=== PATIENT | male | born 1960 | race Caucasian/White ===

== ENCOUNTER 2019-01-09 04:45 | Inpatient (IN) | payer MEDICAID ==
[~2019-01-09] VITALS: Ht 180.3 cm; Wt 54.0 kg
--- NOTE | ~2019-01-09 | CON ---
[address] [address] CONSULTATION Name: SALGADOKEYON Room: [address] IN M.R.#: [id number] Admission: 01/09/19 Attend Phys: Zeynep Carr MD Discharge: Date of : 62 Report #: [id number] THIS REPORT FOR: //name// CC: Aiden Godfrey DATE OF SERVICE: 01/09/2019 REFERRING PHYSICIAN: Dr. Zeynep Carr. REASON FOR CONSULTATION: Abdominal pain. IMPRESSION: 1. Abdominal pain associated with dilated loops of small bowel suggesting partial small-bowel obstruction -- cannot rule out internal hernia versus adhesions versus other causes. 2. Decompensated liver disease secondary to chronic hepatitis B infection with associated ascites for which the patient is on diuretic regimen for the same. 3. Protein-calorie malnutrition secondary to #2. RECOMMENDATIONS: Since the patient's CT scan suggests there may be some "swirling of the mesentery" which could suggest that he has a twisting of his small bowel, which is putting him at risk for ischemic bowel, we will proceed with an emergent CT scan of the abdomen and pelvis with oral and IV contrast and proceed from the same. He will likely need to have an NG tube to decompress his small bowel, but he may need to be transferred to higher level of care. 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 Millard ([place]?). The patient should remain n.p.o. until after CT scan and we will await the results of the same and make further recommendations thereafter. I have discussed the plans with the patient as well. He is agreeable to the same. History: The patient is a 58-year-old white male with decompensated liver disease secondary to hepatitis B and/or other causes, who presented to the emergency room with complaints of rather severe chest discomfort, chest pain and upper abdominal pain with associated abdominal distention. He is very tender upon physical examination of his upper abdomen and CT scan of the abdomen and pelvis suggest that he may have partial small-bowel obstruction involving the proximal small bowel. There is also some question about possibly having an internal hernia that may be causing some of these issues. The patient has had multiple abdominal surgeries, he does not carry a list, but this includes appendectomy, inguinal hernia surgeries and other such issues. He is normally followed at for all of his care and his primary care doctor is in [place], [place]. However, because he was having abnormal chest discomfort and chest [facility] [address] [place] [address] CONSULTATION Name: KEYON SALGADO Room: [address] M.R.#: [id number] Admission: 01/09/19 Attend Phys: Zeynep Carr MD Discharge: Date of : 62 Report #: [id number] pain, he was brought to [facility] for ER evaluation to ensure it is not related to his cardiopulmonary system. It was not felt that it is related to same. He is admitted to the hospital here for the first time for further evaluation and treatment. ALLERGIES: PENICILLIN. MEDICATIONS: At home include Xifaxan, Vemlidy, Lasix 40 mg daily, Aldactone 100 mg daily, Protonix 40 mg daily, Proscar 5 mg daily, Ultram 50 mg up to twice daily, metoclopramide 10 mg twice daily, Cipro 500 mg b.i.d. and lactulose 15 mL daily. PAST MEDICAL AND SURGICAL HISTORY: Remarkable for decompensated liver disease as mentioned above secondary to hepatitis B and/or other causes. The patient did not want to go into details of the same, but he is normally followed at for all of his care. He has had multiple abdominal surgeries, has reflux, ascites and BPH as well. SOCIAL HISTORY: The patient smokes up to a pack per day, does not drink alcohol. FAMILY HISTORY: Not taken. PHYSICAL EXAMINATION: GENERAL: Revealed very ill-appearing 58-year-old gentleman who appears much older than stated age. CARDIOPULMONARY EXAMINATION: Revealed tachycardic rate and rhythm. LUNGS: Clear. ABDOMEN: Soft, is tender just to gentle percussion and palpation. LABORATORY DATA: From admission revealed white count 11.5, hemoglobin 11.9, platelet count 225,000. His MCV is 96.2 and RDW 14.4. His sodium 130, potassium 4.3, chloride 96, bicarbonate is 28, BUN 23, creatinine 1.5. GFR 48. Total bilirubin 1.3, alkaline phosphatase 120, AST is 26, ALT 20. His albumin is only 2.4. His protime is 11.5 with INR of 1.1. CT scan of the abdomen and pelvis revealed a shrunken liver with moderate amount of ascites and proximal small bowel dilation. Stomach is decompressed. His colon revealed marked stool throughout the colon without evidence to suggest that this was the cause from the same and his distal small bowel is decompressed. There is also some swirling of the mesentery suggesting that he may have possible. DISCUSSION: At the present time, the patient [place] [address] CONSULTATION Name: KEYON SALGADO Room: [address] IN [facility]#: [id number] Admission: 01/09/19 Attend Phys: Zeynep Carr MD Discharge: Date of : 62 Report #: [id number] scan with oral contrast, oral and IV contrast and depending on the results of the same, the patient may likely need to be transferred to for further evaluation and treatment. He is beyond the scope of our care at this point in time with an advanced MELD score and ascites and chronic liver disease. He needs to be at a transplant center or definitely at a higher level of care, this would include , [facility] or at . We will wait for results of CT scan and make further recommendations thereafter. By: [id number] Garza DO /tank
[2019-01-09 04:47] VITALS: BP 100/70
[2019-01-09] MEDS ORDERED: XIFAXAN550 M1 PO (05:04)
[2019-01-09] MEDS ORDERED: VEMLIDY25 MG PO (05:05)
[2019-01-09] MEDS ORDERED: LASIX 80 MG TAB80 MG PO (05:06)
[2019-01-09] MEDS ORDERED: PROTONIX40 M1 PO (05:07)
[2019-01-09] MEDS ORDERED: ALDACTONE100 MG PO (05:07)
[2019-01-09] MEDS ORDERED: PROSCAR 5MG TABL5 MG PO (05:08)
[2019-01-09] MEDS ORDERED: TRAMADOL 50 MG50 MG PO (05:09)
[2019-01-09] MEDS ORDERED: REGLAN 10 MG TA10 MG PO (05:09)
[2019-01-09] MEDS ORDERED: CIPRO500 MG PO (05:10)
[2019-01-09] MEDS ORDERED: CONSTULOSE10 GM/152 PO (05:13)
[2019-01-09 05:21] LABS: HEMATOCRIT 34.4 % (42.0-52.0); HEMOGLOBIN 11.9 gm/dL (14.0-18.0); MCH 33.3 pg (26.0-34.0); MCHC 34.6 g/dL (28.0-37.0); MCV 96.2 fL (80.0-100.0); MPV 6.6 fl. (7.2-11.1); NUCLEATED RBCS 0 /100WBC; PLATELET COUNT* 225 thou/uL (150-400); RBC 3.57 mil/uL (4.50-6.00); RDW-CV 14.4 % (10.5-14.5); WBC 11.5 thou/uL (4.0-11.0)
[2019-01-09 05:40] LABS: INR 1.1; PROTIME 11.5 Seconds (9.20-11.50)
[2019-01-09 05:48] LABS: ANION GAP 6 mmol/L (7-16); BUN 23 mg/dL (7-18); CALCIUM 8.8 mg/dL (8.5-10.1); CHLORIDE 96 mmol/L (98-107); CO2 28 mmol/L (21-32); CREATININE 1.5 mg/dL (0.6-1.3); GLUCOSE 127 mg/dL (70-99); POTASSIUM 4.3 mmol/L (3.5-5.1); SODIUM 130 mmol/L (136-145); TROPONIN-I LEVEL <0.06 ng/mL (<0.06)
[2019-01-09 05:50] LABS: ALBUMIN 2.4 g/dL (3.4-5.0); ALKALINE PHOSPHATASE 120 U/L (46-116); LIPASE 88 U/L (73-393); NT-PRO BRAIN NAT PEPTIDE 56 pg/mL (<300); SGOT 26 U/L (15-37); SGPT 20 U/L (30-65); TOTAL BILIRUBIN 1.3 mg/dL (<0.1-1.0); TOTAL PROTEIN 7.7 g/dL (6.4-8.2)
[2019-01-09 06:42] LABS: ABSOLUTE MONOCYTES 0.5 thou/uL (0.0-1.2); PLATELET ESTIMATE ADEQUATE
[2019-01-09 06:43] LABS: ANISOCYTOSIS 1+; POIKILOCYTOSIS 1+
[2019-01-09 13:14] VITALS: BP 99/72
[2019-01-09 14:11] VITALS: BP 106/70
[2019-01-09 14:20] VITALS: BP 107/73
[2019-01-09] MEDS ORDERED: BENTYL 10 MG CA10 M1 PO (14:25)
[2019-01-09 17:06] LABS: HEMATOCRIT 33.7 % (42.0-52.0); HEMOGLOBIN 11.3 gm/dL (14.0-18.0); MCH 32.9 pg (26.0-34.0); MCHC 33.5 g/dL (28.0-37.0); MCV 98.2 fL (80.0-100.0); MPV 6.8 fl. (7.2-11.1); NUCLEATED RBCS 0 /100WBC; PLATELET COUNT* 198 thou/uL (150-400); RBC 3.43 mil/uL (4.50-6.00); RDW-CV 14.3 % (10.5-14.5); WBC 14.7 thou/uL (4.0-11.0)
[2019-01-09 17:23] LABS: ALBUMIN 2.2 g/dL (3.4-5.0); CALCIUM 8.6 mg/dL (8.5-10.1); CREATININE 1.3 mg/dL (0.6-1.3); POTASSIUM 4.5 mmol/L (3.5-5.1); TOTAL PROTEIN 7.8 g/dL (6.4-8.2)
[2019-01-09 18:45] LABS: ABSOLUTE EOSINOPHILS 0.3 thou/uL (0.0-0.7); ABSOLUTE LYMPHOCYTES 1.6 thou/uL (0.8-5.3); ABSOLUTE NEUTROPHILS 11.8 thou/uL (1.6-8.1)
[2019-01-09 18:47] LABS: PLATELET ESTIMATE ADEQUATE
[2019-01-09 21:10] VITALS: BP 106/68
[2019-01-10 03:00] VITALS: BP 109/71
[2019-01-10 05:33] LABS: HEMATOCRIT 28.2 % (42.0-52.0); HEMOGLOBIN 9.9 gm/dL (14.0-18.0); MCH 33.4 pg (26.0-34.0); MCV 95.5 fL (80.0-100.0); RBC 2.95 mil/uL (4.50-6.00); RDW-CV 14.1 % (10.5-14.5); WBC 11.1 thou/uL (4.0-11.0)
[2019-01-10 05:44] LABS: ALBUMIN 1.8 g/dL (3.4-5.0); CALCIUM 8.3 mg/dL (8.5-10.1); MAGNESIUM 1.9 mg/dL (1.8-2.4); POTASSIUM 4.4 mmol/L (3.5-5.1); TOTAL BILIRUBIN 1.9 mg/dL (<0.1-1.0); TOTAL PROTEIN 6.8 g/dL (6.4-8.2)
[2019-01-10 08:00] VITALS: BP 94/62
[2019-01-10 11:57] VITALS: BP 100/63
[2019-01-10 15:46] VITALS: BP 99/68
--- NOTE | 2019-01-10 16:33 | EKG ---
[place] [address] ELECTROCARDIOGRAM REPORT Name: KEYON SALGADO Room: [address] ADM IN .R.#: [id number] Admission: 01/09/19 Attend Phys: Zeynep Carr MD Discharge: Date of : 62 Report #: [id number] THIS REPORT FOR: //name// [facility] ED Test Date: 2019-01-09 Test Time: 04:51:20 Pat Name: KEYON SALGADO Department: Room: [facility] Gender: M Wine Consultant: KERRI : 1960 Requested By: Rea Juarez Order Number: [id number] MD: Ariel Moreira Measurements Intervals [place] Rate: 116 P: 85 [place]: 138 QRS: 89 QRSD: 96 T: 62 QT: 309 QTc: 430 Interpretive Statements Sinus tachycardia No previous ECG available for comparison Electronically Signed On 01-10-2019 16:33:17 MEDICAL STAFF ASSISTANT by Ariel Moreira [email or web address] <ELECTRONICALLY SIGNED> By: Ariel Moreira MD, [facility] 01/10/19 1633 [id number] Ariel Moreira MD, FACC /EPI
[2019-01-10 20:00] VITALS: BP 88/59
[2019-01-11] VITALS: BP 115/59
[2019-01-11 04:00] VITALS: BP 95/58
[2019-01-11 05:19] LABS: ABSOLUTE EOSINOPHILS 0.2 thou/uL (0.0-0.7); ABSOLUTE LYMPHOCYTES 1.3 thou/uL (0.8-5.3); ABSOLUTE MONOCYTES 0.8 thou/uL (0.0-1.2); ABSOLUTE NEUTROPHILS 4.7 thou/uL (1.6-8.1); BASOPHILS 0.7 %; EOSINOPHILS 3.1 %; HEMATOCRIT 26.3 % (42.0-52.0); HEMOGLOBIN 9.3 gm/dL (14.0-18.0); LYMPHOCYTES 18.8 %; MCH 33.6 pg (26.0-34.0); MCHC 35.4 g/dL (28.0-37.0); MONOCYTES 11.1 %; NUCLEATED RBCS 0 /100WBC; PLATELET COUNT* 183 thou/uL (150-400); POLYS 66.3 %; RBC 2.76 mil/uL (4.50-6.00); RDW-CV 14.1 % (10.5-14.5); WBC 7.1 thou/uL (4.0-11.0)
[2019-01-11 06:05] LABS: ALBUMIN 1.7 g/dL (3.4-5.0); CALCIUM 8.5 mg/dL (8.5-10.1); CREATININE 0.9 mg/dL (0.6-1.3); POTASSIUM 4.5 mmol/L (3.5-5.1); TOTAL BILIRUBIN 1.2 mg/dL (<0.1-1.0); TOTAL PROTEIN 6.3 g/dL (6.4-8.2)
[2019-01-11 08:00] VITALS: BP 88/61
[2019-01-11 15:08] LABS: URINE BILIRUBIN NEGATIVE (Negative); URINE BLOOD NEGATIVE (Negative); URINE CLARITY CLEAR; URINE COLOR DARK YELLOW; URINE GLUCOSE-RANDOM NEGATIVE (Negative); URINE KETONES NEGATIVE (Negative); URINE LEUKOCYTES-REFLEX 1+ (Negative); URINE NITRITE-REFLEX NEGATIVE (Negative); URINE PROTEIN NEGATIVE (Negative)
[2019-01-11 15:39] LABS: SQUAMOUS 4-10 Moderate /LPF (0-3)
[2019-01-11 15:40] LABS: URINE RBC 0-2 Rare /HPF (0-2); URINE WBC-REFLEX 6-15 Few /HPF (0-5)
[2019-01-11 15:42] LABS: BF RBC <1000 /mm3; TOTAL CELL COUNT 131 /mm3
[2019-01-11 15:42] LABS: CRYSTALS None Seen /LPF (None Seen); HYALINE CASTS 0-3 Few /LPF (None Seen); MUCUS 4-6 Moderate strn/LPF (None Seen)
[2019-01-11 16:05] LABS: COLOR AMBER; TOTAL VOLUME 60 ml
[2019-01-11 16:06] LABS: CLARITY HAZY; SOURCE ASCITES
[2019-01-11 16:07] LABS: BF LYMPHOCYTES 49 %; BF POLYS 2 %; BF TISSUE 49 /100 WBC
[2019-01-11 16:20] VITALS: BP 96/67
[2019-01-11 16:43] VITALS: BP 88/61
[2019-01-11 20:30] VITALS: BP 87/59
[2019-01-12 04:00] VITALS: BP 82/53
[2019-01-12 08:20] VITALS: BP 94/52
[2019-01-12 09:14] VITALS: BP 94/52
[2019-01-12 10:10] LABS: BODY FLUID PROTEIN 2.5 g/dL (())
[2019-01-13 18:17] LABS: SOURCE ABDOMINAL
== END 2019-01-12 14:20 | disposition home or self-care (01) | DRG 442 ==
LOC: M.ERS 04:45 → M.2W 08:08 → M.ORTHSURG 08:08 → M.TBA-ER 08:08 → M.2W 14:34 → M.ORTHSURG 01-11 16:09
PROVIDERS: Emergency Medicine; Internal Medicine Gastroenterology; Surgery; ADMIT Internal Medicine
PROC: 0D9670Z Drainage of Stomach with Drainage Device, Via Natural or Artificial Opening (ICD-10-PCS; principal; 2019-01-09)
PROC: 0W9G3ZZ Drainage of Peritoneal Cavity, Percutaneous Approach (ICD-10-PCS; 2019-01-11)
DX: K72.90 Hepatic failure, unspecified without coma (principal); K56.600 Partial intestinal obstruction, unspecified as to cause; R18.8 Other ascites; B18.1 Chronic viral hepatitis B without delta-agent; E46 Unspecified protein-calorie malnutrition; Z68.1 Body mass index [BMI] 19.9 or less, adult; K74.60 Unspecified cirrhosis of liver; F03.90 Unspecified dementia, unspecified severity, without behavioral disturbance, psychotic disturbance, mood disturbance, and anxiety; K21.9 Gastro-esophageal reflux disease without esophagitis; F17.210 Nicotine dependence, cigarettes, uncomplicated; Z90.49 Acquired absence of other specified parts of digestive tract; Z79.899 Other long term (current) drug therapy; Z88.0 Allergy status to penicillin

== ENCOUNTER 2019-04-13 19:11 | Inpatient (IN) | payer OTHER, MEDICAID ==
[~2019-04-13] VITALS: Ht 180.3 cm; Wt 59.0 kg
--- NOTE | ~2019-04-13 | CON ---
[address] [address] CONSULTATION Name: KEYON SALGADO Room: [address] IN ..#: [id number] Admission: 04/13/19 Attend Phys: Keyon Marquis MD Discharge: 04/16/19 Date of : 62 Report #: [id number] THIS REPORT FOR: //name// CC: Keyon Godfrey DATE OF SERVICE: 04/16/2019 HISTORY OF PRESENT ILLNESS: This is a pleasant 58-year-old gentleman with past medical history significant for cirrhosis secondary to hepatitis B and alcohol use, decompensated by the presence of varices, encephalopathy and ascites who is presenting for worsening confusion over the last 3 days. The patient reports he felt a sense of cloudiness in his head, inability to think clearly and inability to fall asleep for the last 3 days. The patient reports his symptoms have resolved since yesterday night and today morning he has been feeling well. The patient denies any significant abdominal pain, nausea, vomiting, diarrhea, hematemesis or hematochezia. He denies any burning micturition. The patient receives care in [place], [place] for his hepatitis B and has seen a multiple wire sawyer there. He does wish to follow up in [place], [place]. PAST MEDICAL HISTORY: The patient has as mentioned above history of cirrhosis, hepatitis B, alcohol abuse, ascites, varices and encephalopathy. PAST SURGICAL HISTORY: The patient reports he has had several abdominal surgeries, but is unable to give details. SOCIAL HISTORY: The patient currently smokes about a pack a day, but reports he quit alcohol about 2 years back and denies any recent recreational drug use. FAMILY HISTORY: There is no family history of colorectal cancer or liver disease. REVIEW OF SYSTEMS: Negative except for those mentioned in the HPI. PHYSICAL EXAMINATION: VITAL SIGNS: Temperature 36.8, pulse rate 90, blood pressure 110/71, respiratory rate 17. GENERAL: The patient is alert, awake, oriented x 3, appears chronically ill and cachectic. HEENT: Mucous membranes are moist. There is no congestion. Upper extremities are covered with spider angiomata. Sclerae are mildly icteric. LUNGS: Clear to auscultation bilaterally. CARDIOVASCULAR: Normal rate and rhythm regular, S1, S2 present. ABDOMEN: Soft, distended, positive for fluid thrill. EXTREMITIES: Warm. There is 2+ [place] [address] CONSULTATION Name: KEYON SALGADO Room: [address]#: [id number] Admission: 04/13/19 Attend Phys: Keyon Marquis MD Discharge: 04/16/19 Date of : 62 Report #: [id number] LABORATORY DATA: Hemoglobin 11.8, hematocrit 32.4, platelet count 121, WBC count 5.8. Sodium 125, potassium 4.1, chloride 95, bicarbonate 22, BUN 18, creatinine 1.2. IMAGING: CT abdomen and pelvis performed on 04/13/2019 demonstrates mildly prominent ascites throughout the abdomen and pelvis. Nodular contour of the liver consistent with cirrhosis, varices throughout the gastric and splenic region suggesting portal hypertension, small hiatal hernia, cystic changes in kidneys. ASSESSMENT AND PLAN: Pleasant 58-year-old gentleman with decompensated cirrhosis who has been consulted for evaluation of hyponatremia and encephalopathy. 1. Encephalopathy. Continue with lactulose and rifaximin. The encephalopathy appears to have resolved at this time. 2. Hyponatremia. The patient's sodium is 125. This generally indicates poor overall liver disease, increasing the sodium beyond 125 does not have any mortality benefit on the patient. I would recommend starting midodrine 5 mg t.i.d. Also, his blood pressure remains low. This may help in aiding better renal perfusion and improving his sodium levels. 3. For patients with decompensated cirrhosis, albumin is recommended outpatient biweekly and it has been shown to improve mortality. However, the patient is allergic to albumin and cannot receive it. 4. Ascites. Continue his diuretics as previously prescribed, varices and HCC screening. The patient would like to follow up with his primary multiple wire sawyer as outpatient for this. The patient was seen and examined on 04/16/2019. The note reflects this date of service. Thank you for this consultation. Do not hesitate to call us with any questions. By: [id number] Garibay MD /tank
[~2019-04-13 19:11] MED LIST: ALDACTONE100 MG PO; BENTYL 10 MG CA10 M1 PO; CIPRO500 MG PO; CONSTULOSE10 GM/152 PO; LASIX 80 MG TAB80 MG PO; PROSCAR 5MG TABL5 MG PO; PROTONIX40 M1 PO; REGLAN 10 MG TA10 MG PO; TRAMADOL 50 MG50 MG PO; VEMLIDY25 MG PO; XIFAXAN550 M1 PO
[2019-04-13 19:35] VITALS: BP 115/78
[2019-04-13] MEDS ORDERED: ROBAXIN 750 MG750 M1 PO (19:42)
[2019-04-13 20:20] LABS: ABSOLUTE EOSINOPHILS 0.1 thou/uL (0.0-0.7); ABSOLUTE LYMPHOCYTES 0.6 thou/uL (0.8-5.3); ABSOLUTE MONOCYTES 0.4 thou/uL (0.0-1.2); ABSOLUTE NEUTROPHILS 3.4 thou/uL (1.6-8.1); BASOPHILS 0.5 %; EOSINOPHILS 1.8 %; HEMATOCRIT 38.1 % (42.0-52.0); HEMOGLOBIN 13.6 gm/dL (14.0-18.0); LYMPHOCYTES 13.9 %; MCH 34.5 pg (26.0-34.0); MCHC 35.6 g/dL (28.0-37.0); MONOCYTES 9.4 %; MPV 6.8 fl. (7.2-11.1); NUCLEATED RBCS 0 /100WBC; PLATELET COUNT* 178 thou/uL (150-400); POLYS 74.4 %; RBC 3.93 mil/uL (4.50-6.00); RDW-CV 16.2 % (10.5-14.5); WBC 4.5 thou/uL (4.0-11.0)
[2019-04-13 20:28] LABS: CALCIUM 9.2 mg/dL (8.5-10.1); CREATININE 1.3 mg/dL (0.6-1.3); POTASSIUM 4.4 mmol/L (3.5-5.1)
[2019-04-13 20:33] LABS: ALBUMIN 2.7 g/dL (3.4-5.0); TOTAL BILIRUBIN 1.9 mg/dL (<0.1-1.0); TOTAL PROTEIN 8.1 g/dL (6.4-8.2)
[2019-04-13 21:05] LABS: APTT 28.2 Seconds (25.0-31.3); PROTIME 10.7 Seconds (9.20-11.50)
[2019-04-13 21:30] LABS: AMMONIA 35 umol/L (11-32); TROPONIN-I LEVEL <0.06 ng/mL (<0.06)
[2019-04-13 22:50] VITALS: BP 113/74
[2019-04-13 23:05] VITALS: BP 116/74
[2019-04-14] VITALS (7 sets, daily range): BP systolic 91–131; BP diastolic 52–80
--- NOTE | 2019-04-14 11:27 | EKG ---
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: : 1960 Requested By: Marcos Gay Order Number: [id number] MD: Jose Elias Rees Measurements Intervals [place] Rate: 102 P: 68 DC: 139 QRS: 75 QRSD: 103 T: 36 QT: 335 QTc: 437 Interpretive Statements Sinus tachycardia Probable left atrial enlargement RSR' in V1 or V2, right VCD or RVH Compared to ECG 01/09/2019 04:51:20 RSR' in V1 or V2 now present Electronically Signed On 04-14-2019 11:27:44 CDT by Jose Elias Rees [email or web address] <ELECTRONICALLY SIGNED> By: Jose Elias Rees MD, FAC 04/14/19 1127 2238 Jose Elias Rees MD, [facility] /EPI
[2019-04-14 14:10] LABS: CALCIUM 8.5 mg/dL (8.5-10.1); POTASSIUM 4.5 mmol/L (3.5-5.1)
[2019-04-15] VITALS: BP 93/57
[2019-04-15 04:00] VITALS: BP 109/72
[2019-04-15 05:14] LABS: CALCIUM 8.3 mg/dL (8.5-10.1); CREATININE 1.1 mg/dL (0.6-1.3); POTASSIUM 4.4 mmol/L (3.5-5.1)
[2019-04-15 08:00] VITALS: BP 141/85
[2019-04-15 11:10] VITALS: BP 110/70
[2019-04-15 12:24] LABS: ABSOLUTE EOSINOPHILS 0.1 thou/uL (0.0-0.7); ABSOLUTE LYMPHOCYTES 0.7 thou/uL (0.8-5.3); ABSOLUTE MONOCYTES 0.4 thou/uL (0.0-1.2); ABSOLUTE NEUTROPHILS 4.8 thou/uL (1.6-8.1); BASOPHILS 0.6 %; EOSINOPHILS 2.4 %; HEMATOCRIT 35.9 % (42.0-52.0); HEMOGLOBIN 12.7 gm/dL (14.0-18.0); LYMPHOCYTES 11.7 %; MCH 35.1 pg (26.0-34.0); MCHC 35.5 g/dL (28.0-37.0); MCV 98.7 fL (80.0-100.0); MONOCYTES 6.3 %; MPV 6.8 fl. (7.2-11.1); NUCLEATED RBCS 0 /100WBC; PLATELET COUNT* 137 thou/uL (150-400); RBC 3.63 mil/uL (4.50-6.00); RDW-CV 15.9 % (10.5-14.5)
[2019-04-15 16:30] VITALS: BP 97/56
[2019-04-15 20:40] VITALS: BP 103/70
[2019-04-16] VITALS: BP 89/57
[2019-04-16 00:50] LABS: URINE BILIRUBIN NEGATIVE (Negative); URINE BLOOD NEGATIVE (Negative); URINE CLARITY CLEAR; URINE COLOR YELLOW; URINE GLUCOSE-RANDOM NEGATIVE (Negative); URINE KETONES NEGATIVE (Negative); URINE LEUKOCYTES-REFLEX 1+ (Negative); URINE NITRITE-REFLEX NEGATIVE (Negative); URINE PROTEIN NEGATIVE (Negative); URINE UROBILINOGEN 0.2 E.U./dl (0.2-1.0)
[2019-04-16 00:58] LABS: AMP/METHAMP Negative (Negative); BARBITURATES Negative (Negative); BENZODIAZEPINES Negative (Negative); COCAINE Negative (Negative); METHADONE Negative (Negative); OPIATES Negative (Negative); PCP Negative (Negative); THC Negative (Negative)
[2019-04-16 02:13] LABS: SQUAMOUS 0-3 Few /LPF (0-3); WBC CLUMPS Few (None Seen)
[2019-04-16 02:14] LABS: BACTERIA-REFLEX >30 Many /HPF (None Seen); CASTS None Seen /LPF (None Seen); CRYSTALS None Seen /LPF (None Seen); MUCUS 0-3 Light strn/LPF (None Seen); URINE RBC 3-10 Few /HPF (0-2)
[2019-04-16 04:00] VITALS: BP 108/64
[2019-04-16 04:36] LABS: ABSOLUTE EOSINOPHILS 0.2 thou/uL (0.0-0.7); ABSOLUTE LYMPHOCYTES 1.3 thou/uL (0.8-5.3); ABSOLUTE MONOCYTES 0.6 thou/uL (0.0-1.2); ABSOLUTE NEUTROPHILS 3.7 thou/uL (1.6-8.1); BASOPHILS 0.6 %; EOSINOPHILS 3.5 %; HEMATOCRIT 32.4 % (42.0-52.0); HEMOGLOBIN 11.2 gm/dL (14.0-18.0); LYMPHOCYTES 22.2 %; MCHC 34.7 g/dL (28.0-37.0); MCV 98.1 fL (80.0-100.0); MONOCYTES 10.2 %; MPV 6.6 fl. (7.2-11.1); NUCLEATED RBCS 0 /100WBC; PLATELET COUNT* 121 thou/uL (150-400); POLYS 63.5 %; RDW-CV 16.1 % (10.5-14.5); WBC 5.8 thou/uL (4.0-11.0)
[2019-04-16 04:58] LABS: INR 1.1; PROTIME 11.6 Seconds (9.20-11.50)
[2019-04-16 05:28] LABS: CALCIUM 8.3 mg/dL (8.5-10.1); CREATININE 1.2 mg/dL (0.6-1.3); POTASSIUM 4.1 mmol/L (3.5-5.1)
[2019-04-16 08:00] VITALS: BP 99/70
[2019-04-16] MEDS ORDERED: CIPRO500 MG PO (13:26)
[2019-04-16] MEDS ORDERED: MIDODRINE HCL 55 M1 PO (13:26)
[2019-04-16] MEDS ORDERED: FLAGYL500 M1 PO (13:26)
[2019-04-16 14:43] VITALS: BP 110/71
== END 2019-04-16 15:45 | disposition home or self-care (01) | DRG 442 ==
LOC: M.ERS 19:11 → M.2W 20:58 → M.TBA-ER 20:58 → M.2W 21:52
PROVIDERS: Internal Medicine; Physician Assistant; ADMIT Internal Medicine
DX: K72.90 Hepatic failure, unspecified without coma (principal); E87.1 Hypo-osmolality and hyponatremia; G93.40 Encephalopathy, unspecified; K76.6 Portal hypertension; R18.8 Other ascites; N39.0 Urinary tract infection, site not specified; K74.60 Unspecified cirrhosis of liver; A59.9 Trichomoniasis, unspecified; K21.9 Gastro-esophageal reflux disease without esophagitis; Z88.0 Allergy status to penicillin; Z88.8 Allergy status to other drugs, medicaments and biological substances; Z79.899 Other long term (current) drug therapy

== ENCOUNTER 2019-06-19 10:28 | Inpatient (IN) | payer MEDICAID ==
[~2019-06-19] VITALS: Ht 180.3 cm; Wt 66.7 kg
[~2019-06-19 10:28] MED LIST changes: +FLAGYL500 M1 PO; +MIDODRINE HCL 55 M1 PO; +ROBAXIN 750 MG750 M1 PO
[2019-06-19 10:37] VITALS: BP 121/83
[2019-06-19 11:04] LABS: HEMATOCRIT 33.9 % (42.0-52.0); HEMOGLOBIN 11.8 gm/dL (14.0-18.0); MCH 35.1 pg (26.0-34.0); MCHC 34.8 g/dL (28.0-37.0); MCV 100.9 fL (80.0-100.0); MPV 6.8 fl. (7.2-11.1); NUCLEATED RBCS 0 /100WBC; PLATELET COUNT* 203 thou/uL (150-400); RBC 3.36 mil/uL (4.50-6.00); RDW-CV 14.9 % (10.5-14.5); WBC 11.9 thou/uL (4.0-11.0)
[2019-06-19 11:08] LABS: PCO2 32.5 mmHg (35.0-45.0); PO2 85.1 mmHg (75.0-100.0); pH 7.454 (7.340-7.450)
[2019-06-19 11:16] LABS: ANION GAP 5 mmol/L (7-16); BUN 27 mg/dL (7-18); CALCIUM 9.3 mg/dL (8.5-10.1); CHLORIDE 94 mmol/L (98-107); CO2 26 mmol/L (21-32); CREATININE 1.6 mg/dL (0.6-1.3); GLUCOSE 204 mg/dL (70-99); SODIUM 125 mmol/L (136-145)
[2019-06-19 11:26] LABS: ALBUMIN 2.2 g/dL (3.4-5.0); ALKALINE PHOSPHATASE 204 U/L (46-116); AMMONIA 32 umol/L (11-32); SGOT 73 U/L (15-37); SGPT 62 U/L (30-65); TOTAL BILIRUBIN 1.3 mg/dL (<0.1-1.0); TOTAL PROTEIN 7.9 g/dL (6.4-8.2); TROPONIN-I LEVEL <0.06 ng/mL (<0.06)
[2019-06-19] MEDS ORDERED: VITAMIN D5000 UNIT PO (12:08)
[2019-06-19 12:09] LABS: ABSOLUTE LYMPHOCYTES 0.4 thou/uL (0.8-5.3); ABSOLUTE MONOCYTES 0.4 thou/uL (0.0-1.2); ABSOLUTE NEUTROPHILS 11.2 thou/uL (1.6-8.1)
[2019-06-19 12:12] LABS: MACROCYTES Occasional; PLATELET ESTIMATE ADEQUATE
[2019-06-19 12:13] LABS: ANISOCYTOSIS Occasional
--- NOTE | 2019-06-19 12:46 | NUR ---
PT'S SISTER, JOSEFINA HENSLEY [phone] IS REQUESTING UPDATES ON PATIENT TREATMENT AND RESULTS FROM ANY LAB WORK OR RADIOLOGY SCANS.
[2019-06-19 12:59] VITALS: BP 112/75
[2019-06-19 13:20] LABS: URINE BILIRUBIN NEGATIVE (Negative); URINE BLOOD NEGATIVE (Negative); URINE CLARITY CLEAR; URINE COLOR YELLOW; URINE GLUCOSE-RANDOM NEGATIVE (Negative); URINE KETONES NEGATIVE (Negative); URINE LEUKOCYTES-REFLEX NEGATIVE (Negative); URINE NITRITE-REFLEX NEGATIVE (Negative); URINE PROTEIN NEGATIVE (Negative); URINE UROBILINOGEN 0.2 E.U./dl (0.2-1.0)
[2019-06-19 13:29] LABS: AMP/METHAMP Negative (Negative); BARBITURATES Negative (Negative); BENZODIAZEPINES Negative (Negative); COCAINE Negative (Negative); METHADONE Negative (Negative); OPIATES Negative (Negative); PCP Negative (Negative); THC Negative (Negative)
[2019-06-19 14:10] VITALS: BP 120/70
[2019-06-19] MEDS ORDERED: ROBAXIN 750 MG750 MG PO (14:31)
--- NOTE | 2019-06-19 15:03 | NUR ---
RECIEVIED REPORT FROM JEFFERSON RN IN ER OF EXPECTED ADMISSION AT 1250- DX; HYPONATREMIA, AMS/LACTOACIDOSIS- PT ARRIVED TO ROOM 221 VIA CART AT 1305, SBA X1 TO BED- WOOL BUYER PLACED ORDERED, TRACING ST- VS 97.6 18 120/70 107 100% ON RA- PT A&O X4- CONTINENT OF BOWEL AND BLADDER- EXPIRATORY WHEEZONG NOTED IN UPPER LOBES, MORE PROMINENT TO ANDREA- RESP EVEN AND UN-LABORED- ABD SOFT/ROUND/NON-TENDER, BS X4 QUADS- LAST BM REPORTED THIS AM- IV NOTED TO LEFT FA INTACT, IVF STARTED PRESCRIBED AT TIME OF ADMISSION- SCATTERED BRUISING NOTED- BLANCHABLE REDNESS NOTED TO BOTTOM- BANDAIDE NOTED TO LOWER BACK FROM REPOTED RECENT BACK INJECTION, NO DRAINAGE NOTED- PT RATES PAIN TO BACK 05/26, DENIES NEED FOR PAIN MEDICATIONS AT THIS TIME- PT ORIENTATED TO ROOM AND CALL LIGHT- HOURLY ROUNDS IN PLACE R/T SAFETY/NEEDS- ALL NEEDS MET AT THIS TIME-WCTM
[2019-06-19 15:41] VITALS: BP 103/77
[2019-06-19 20:00] VITALS: BP 95/59
--- NOTE | 2019-06-19 23:59 | NUR ---
PT ABLE TO FALL ASLEEP AFTER TAKING MUSCLE RELAXER. REFUSED TRAMADOL. SR ON MONITOR. CALL LIGHT IN REACH. HOURLY ROUNDING FOR SAFETY.
[2019-06-20] VITALS: BP 86/50
[2019-06-20 04:00] VITALS: BP 97/54
[2019-06-20 04:25] LABS: ALBUMIN 1.6 g/dL (3.4-5.0); CALCIUM 8.5 mg/dL (8.5-10.1); CREATININE 1.3 mg/dL (0.6-1.3); MAGNESIUM 1.7 mg/dL (1.8-2.4); POTASSIUM 4.4 mmol/L (3.5-5.1); TOTAL BILIRUBIN 0.8 mg/dL (<0.1-1.0); TOTAL PROTEIN 5.9 g/dL (6.4-8.2)
[2019-06-20 07:54] VITALS: BP 99/64
--- NOTE | 2019-06-20 09:00 | NUR ---
ASSUMED CARE OF PT THIS AM AROUND 07- SHORE MAN IN PLACE ORDERED, TRACING SR- UPON ASSESSMENT PT NOTED TO BE RESTING IN BED, WATCHING TV- PT A&O X4- CONTINENT OF BOWEL AND BLADDER- ASSIST X1 WITH TRANSFERS USING CANE- LCTA, RESP EVEN AND UN-LABORED- VSS, O2 SAT 99% ON RA- ABD SOFT/ROUND/NON-TENDER, BS X4 QUADS- LAST BM REPORTED LAST HS- IV NOTED TO RIGHT FA INTACT AND SL- PT RATES PAIN TO BACK 05/26, DENIES ANY NEED FOR PAIN MEDICATIONS AT THIS TIME- CALL LIGHT AND PERSONAL BELONGINGS WITH IN REACH- PT MAKES NEEDS KNOWN- ALL NEEDS MET AT THIS TIME-WCTM
[2019-06-20 10:01] VITALS: BP 99/64
--- NOTE | 2019-06-20 11:22 | NUR ---
ORDERS RECIEVIED FOR OKAY TO D/C TO HOME THIS SHIFT PER -IV TO RIGHT FA ALONG WITH RENAL MEDICINE SPECIALIST D/C'D PRIOR TO D/C- D/C TEACHING/EDUCATION/NEEDED FOLLOW UP'S COMMUNICATED TO PT WITH VERBAL UNDERSTANDING RECEIVIED PER PT- WRITTEN EDUCATION PROVIDED TO PT- ALL QUESTIONS AND CONCERNS ADDRESSED PRIOR TO D/C- BELONGINGS PACKED AND ACCOUNTED FOR PER PT AND FRIEND- PT ESCORTED PER TECH VIA W/C WITH BELONGINGS TO VEHICLE AT 1123- NO PROBLEMS TO NOTE AT TIME OF D/C
--- NOTE | 2019-06-20 11:31 | EKG ---
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 Machine Operator: : 1960 Requested By: Flaquita Melo Order Number: [id number] MD: Jose Elias Rees Measurements Intervals [place] Rate: 99 P: 50 CT: 146 QRS: 72 QRSD: 106 T: 27 QT: 357 QTc: 459 Interpretive Statements Sinus rhythm Low voltage, precordial leads Borderline T abnormalities, anterior leads Compared to ECG 04/13/2019 22:38:34 Low QRS voltage now present T-wave abnormality now present Sinus tachycardia no longer present Electronically Signed On 06-20-2019 11:31:17 CDT by Jose Elias Rees [email or web address] <ELECTRONICALLY SIGNED> By: Jose Elias eRes MD, [facility] 06/20/19 1131 1115 1115 Jose Elias Rees MD, [facility] /EPI
== END 2019-06-20 11:27 | disposition home or self-care (01) | DRG 91 ==
LOC: M.ERS 10:28 → M.TBA-ER 12:37 → M.2W 13:12
PROVIDERS: Personal Emergency Response Attendant; ADMIT Internal Medicine
DX: G92 Toxic encephalopathy (principal); E43 Unspecified severe protein-calorie malnutrition; E87.1 Hypo-osmolality and hyponatremia; B19.10 Unspecified viral hepatitis B without hepatic coma; K76.6 Portal hypertension; R18.8 Other ascites; K21.9 Gastro-esophageal reflux disease without esophagitis; E86.9 Volume depletion, unspecified; T48.205A Adverse effect of unspecified drugs acting on muscles, initial encounter; K74.60 Unspecified cirrhosis of liver; K72.90 Hepatic failure, unspecified without coma; Z68.20 Body mass index [BMI] 20.0-20.9, adult; Z79.899 Other long term (current) drug therapy; Z79.2 Long term (current) use of antibiotics; Z88.0 Allergy status to penicillin; Z88.8 Allergy status to other drugs, medicaments and biological substances; Y92.89 Other specified places as the place of occurrence of the external cause

== ENCOUNTER 2019-08-02 01:44 | Inpatient (IN) | payer MEDICAID ==
[2019-08-02] VITALS (8 sets, daily range): BP systolic 71–122; BP diastolic 42–77
[~2019-08-02] VITALS: Ht 180.3 cm; Wt 62.0 kg
[~2019-08-02 01:44] MED LIST changes: +ROBAXIN 750 MG750 MG PO; +VITAMIN D5000 UNIT PO
[2019-08-02] MEDS ORDERED: VITAMIN A10000 UNI3 PO (02:07)
[2019-08-02 02:11] LABS: ABSOLUTE EOSINOPHILS 0.1 thou/uL (0.0-0.7); ABSOLUTE LYMPHOCYTES 1.5 thou/uL (0.8-5.3); ABSOLUTE MONOCYTES 0.7 thou/uL (0.0-1.2); ABSOLUTE NEUTROPHILS 3.2 thou/uL (1.6-8.1); BASOPHILS 0.7 %; HEMOGLOBIN 11.5 gm/dL (14.0-18.0); MCH 36.4 pg (26.0-34.0); MCV 101.2 fL (80.0-100.0); MPV 7.6 fl. (7.2-11.1); NUCLEATED RBCS 0 /100WBC; PLATELET COUNT* 166 thou/uL (150-400); POLYS 57.3 %; RBC 3.17 mil/uL (4.50-6.00); RDW-CV 15.8 % (10.5-14.5); WBC 5.6 thou/uL (4.0-11.0)
[2019-08-02] MEDS ORDERED: [UNRECOGNIZED DRUG - OTHER] TRANSDERM (02:11)
[2019-08-02 02:57] LABS: ANION GAP 8 mmol/L (7-16); BUN 25 mg/dL (7-18); CALCIUM 9.5 mg/dL (8.5-10.1); CHLORIDE 91 mmol/L (98-107); CO2 23 mmol/L (21-32); CREATININE 1.5 mg/dL (0.6-1.3); GLUCOSE 89 mg/dL (70-99); SODIUM 122 mmol/L (136-145)
[2019-08-02 03:06] LABS: ALKALINE PHOSPHATASE 164 U/L (46-116); MAGNESIUM 1.6 mg/dL (1.8-2.4); PHOSPHORUS* 3.4 mg/dL (2.5-4.9); SGOT 55 U/L (15-37); SGPT 38 U/L (30-65); TOTAL BILIRUBIN 2.3 mg/dL (<0.1-1.0); TOTAL PROTEIN 6.4 g/dL (6.4-8.2); TROPONIN-I LEVEL <0.06 ng/mL (<0.06)
--- NOTE | 2019-08-02 06:58 | NUR ---
PT TO FLOOR 0340 ASSESSMENT COMPLETED CHARTED, AND ASSUMED CARE. APPROX 0530 PT TRANSFERED TO ICU FOR 3% NS.
--- NOTE | 2019-08-02 07:47 | NUR ---
ASSESS PT WITH DR. CHILDRESS. INSTRUCTED TO STOP 3%NS AND TRANSFER TO ROOM 205. WILL CALL REPORT AND TRANSFER PT.
--- NOTE | 2019-08-02 08:10 | NUR ---
SPOKE WITH DR. CHILDRESS PT INTENT TO BE DNR DOCTOR WILL PUT IN ONRDER. CALLED REPORT TO CHRISTINE ON TELE UNIT. WILL TRNASPORT SOON POSSIBLE.
--- NOTE | 2019-08-02 10:31 | EKG ---
[place] [address] ELECTROCARDIOGRAM REPORT Name: KEYON SALGADO Room: [address] ADM IN M.R.#: [id number] Admission: 08/02/19 Attend Phys: Dinh Freeman Discharge: Date of : 62 Report #: [id number] THIS REPORT FOR: //name// [facility] ED Test Date: 2019-08-02 Test Time: 01:53:52 Pat Name: KEYON SALGADO Department: Room: [facility] Gender: M Loader Technician: [place] : 1960 Requested By: Flaquita Melo Order Number: [id number] MD: Jose Elias Rees Measurements Intervals [place] Rate: 100 P: 75 [place]: 140 QRS: 80 QRSD: 103 T: 50 QT: 334 QTc: 431 Interpretive Statements Sinus tachycardia Low voltage, precordial leads Borderline T abnormalities, anterior leads Compared to ECG 06/19/2019 11:15:01 Sinus rhythm no longer present T-wave abnormality still present Electronically Signed On 08-02-2019 10:31:06 CDT by Jose Elias Rees [email or web address] <ELECTRONICALLY SIGNED> By: Jose Elias Rees MD, [facility] 08/02/19 1031 0153 0153 Jose Elias Rees MD, [facility] /EPI
[2019-08-02 10:54] LABS: CALCIUM 9.4 mg/dL (8.5-10.1); CREATININE 1.5 mg/dL (0.6-1.3); POTASSIUM 4.9 mmol/L (3.5-5.1)
--- NOTE | 2019-08-02 18:07 | NUR ---
I ASSUMED CARE OF THE PATIENT AT 0830 AN ICU TRANSFER. THE PATIENT IS ALERT AND ORIENTED X4 AND IS UP WITH STAND BY ASSIST TO THE BATHROOM. SUGAR IS MAINTAINED. BED IS IN THE LOW LOCKED POSITION AND CALL LIGHT IS IN REACH. HOURLY ROUNDING IS COMPLETED AND PATIENT NEEDS ARE MET. PAIN IS MANAGED WITH PRN MEDS. LOTS OF COMPANY DURING THE DAY SHIFT. PATIENT IS COMPLAINING OF ABDOMINAL PAIN AND THINKS HE NEEDS ANOTHER PARACENTESIS. HE JUST HAD 5 LITERS PULLED OFF ON FRIDAY OF LAST WEEK ACCORDING TO HIS SISTER. WILL CONTINUE TO MONITOR.
[2019-08-02 19:37] LABS: CALCIUM 9.6 mg/dL (8.5-10.1); CREATININE 1.5 mg/dL (0.6-1.3)
[2019-08-03] VITALS: BP 102/67
[2019-08-03 02:59] LABS: HEMATOCRIT 28.5 % (42.0-52.0); HEMOGLOBIN 10.1 gm/dL (14.0-18.0); MCH 36.2 pg (26.0-34.0); MCHC 35.3 g/dL (28.0-37.0); MCV 102.6 fL (80.0-100.0); MPV 6.9 fl. (7.2-11.1); RBC 2.78 mil/uL (4.50-6.00); RDW-CV 15.3 % (10.5-14.5); WBC 5.5 thou/uL (4.0-11.0)
[2019-08-03 03:05] LABS: INR 1.1; PROTIME 11.5 Seconds (9.20-11.50)
[2019-08-03 03:08] LABS: ALBUMIN 1.7 g/dL (3.4-5.0); CALCIUM 9.5 mg/dL (8.5-10.1); CREATININE 1.4 mg/dL (0.6-1.3); MAGNESIUM 1.9 mg/dL (1.8-2.4); POTASSIUM 5.2 mmol/L (3.5-5.1); TOTAL BILIRUBIN 2.3 mg/dL (<0.1-1.0); TOTAL PROTEIN 5.9 g/dL (6.4-8.2)
[2019-08-03 04:00] VITALS: BP 106/67
--- NOTE | 2019-08-03 05:22 | NUR ---
PT CARE ASSUMED AT 1930. SAT MAINTAINED IN RA. ALERT AND ORIENTED X4. C/O PAIN, MEDICATION GIVEN PER EMAR. CALL LIGHT WITHIN REACHA AND BED IN LOW POSITION. HOURLY ROUNDING DONE FOR PT SAFETY.
--- NOTE | 2019-08-03 10:08 | NUR ---
Pt is A&O. Resides at home with his dad. Independent with ADLs, dad completes IADLs. Pt has a walker, cane and wc, Pt states that he primarily uses the walker. No hx of HH or SNF. Pt to have parecentesis today. Goal is home at mo, no needs anticipated. Following
[2019-08-03 11:00] VITALS: BP 119/78
--- NOTE | 2019-08-03 19:18 | NUR ---
ASSUMED PT CARE AT 0700, PT WAS NOTED TO BE RESTING IN BED WITH CALL LIGHT ET PERSONAL BELONGINGS IN REACH. PT WAS ASSESSED ET DOCUMENTED IN CHART. VSS, HOURLY ROUNDS WERE COMPLETED, PT HAD A PARACENTESIS PERFORMED D/T ABDOMENAL DISTENTION. PT STATED HE FELT MUCH BETTER.
[2019-08-03 20:00] VITALS: BP 81/48
[2019-08-04] VITALS: BP 96/40
[2019-08-04 04:00] VITALS: BP 86/49
--- NOTE | 2019-08-04 05:22 | NUR ---
ASSUMED PATIENT CARE AT 1900. PATIENT STATES THAT HE FEELS "MUCH BETTER" AFTER PARACENTISIS. SR ON THE MONITOR. ALERT AND ORIENTED TIMES FOUR. USES A WALKER AT HOME TO GET AROUND, STEADY GAIT NOTED HERE. NO COMPLAINTS OF PAIN OR DISCOMFORT NOTED THROUGH SHIFT. WHARF LABORER AND HOURLY ROUNDING COMPLETED DOCUMENTED.
[2019-08-04 05:44] LABS: CREATININE 1.5 mg/dL (0.6-1.3); POTASSIUM 5.4 mmol/L (3.5-5.1)
[2019-08-04 11:41] VITALS: BP 86/49
[2019-08-04 12:00] VITALS: BP 89/56
--- NOTE | 2019-08-04 13:30 | NUR ---
ASSUMED PT CARE AT 0700, PT NOTED TO BE RESTING IN BED WITH CALL LIGHT ET PERSONAL BELONGINGS IN REACH. ASSESSMENT COMPLETED ET DOCUMENTED IN CHART. MEDS GIVEN PER ORDERS, HOURLY ROUNDS COMPLETE. PT WAS DISCHARGED TO HOME AT 1325. CORPORATION PILOT ET IV REMOVED PRIOR TO DISCHARGE. PT HAD ALL HIS BELONGINGS WITH HIM HE WAS TRANSPORTED TO HIS SIGNIFICANT OTHERS VEHICLE VIA W/C.
== END 2019-08-04 12:30 | disposition home or self-care (01) | DRG 432 ==
LOC: M.ERS 01:44 → M.TBA-ER 02:55 → M.2W 03:31 → M.TBA-ER 05:10 → M.ICU 05:10 → M.2W 05:14 → M.ICU 05:14 → M.2W 08:48
PROVIDERS: Family Medicine; Internal Medicine; Personal Emergency Response Attendant; ADMIT Internal Medicine
PROC: 0W9G3ZZ Drainage of Peritoneal Cavity, Percutaneous Approach (ICD-10-PCS; principal; 2019-08-03)
DX: K70.40 Alcoholic hepatic failure without coma (principal); G92 Toxic encephalopathy; N17.0 Acute kidney failure with tubular necrosis; E87.1 Hypo-osmolality and hyponatremia; B19.10 Unspecified viral hepatitis B without hepatic coma; K76.6 Portal hypertension; N18.3 Chronic kidney disease, stage 3 (moderate); K70.31 Alcoholic cirrhosis of liver with ascites; E86.9 Volume depletion, unspecified; K21.9 Gastro-esophageal reflux disease without esophagitis; T50.2X5A Adverse effect of carbonic-anhydrase inhibitors, benzothiadiazides and other diuretics, initial encounter; Y92.89 Other specified places as the place of occurrence of the external cause; Z87.891 Personal history of nicotine dependence; Z79.899 Other long term (current) drug therapy; Z88.0 Allergy status to penicillin; Z88.8 Allergy status to other drugs, medicaments and biological substances

== ENCOUNTER 2019-09-10 09:36 | Emergency (ER) | payer MEDICAID ==
[~2019-09-10] VITALS: Ht 175.3 cm; Wt 61.2 kg
[~2019-09-10 09:36] MED LIST changes: +VITAMIN A10000 UNI3 PO; +[UNRECOGNIZED DRUG - OTHER] TRANSDERM
[2019-09-10] MEDS ORDERED: REGLAN 5 MG TAB5 MG PO (09:55)
[2019-09-10] MEDS ORDERED: LORAZEPAM 0.50.5 MG PO (09:55)
[2019-09-10 10:44] LABS: ABSOLUTE EOSINOPHILS 0.2 thou/uL (0.0-0.7); ABSOLUTE LYMPHOCYTES 1.1 thou/uL (0.8-5.3); ABSOLUTE MONOCYTES 0.5 thou/uL (0.0-1.2); ABSOLUTE NEUTROPHILS 2.1 thou/uL (1.6-8.1); BASOPHILS 0.8 %; EOSINOPHILS 5.7 %; HEMATOCRIT 27.9 % (42.0-52.0); HEMOGLOBIN 9.7 gm/dL (14.0-18.0); LYMPHOCYTES 27.5 %; MCH 34.9 pg (26.0-34.0); MCHC 34.7 g/dL (28.0-37.0); MCV 100.5 fL (80.0-100.0); MONOCYTES 13.4 %; MPV 6.9 fl. (7.2-11.1); NUCLEATED RBCS 0 /100WBC; PLATELET COUNT* 172 thou/uL (150-400); POLYS 52.6 %; RBC 2.78 mil/uL (4.50-6.00); RDW-CV 14.5 % (10.5-14.5); WBC 3.9 thou/uL (4.0-11.0)
[2019-09-10 10:50] LABS: CREATININE 1.6 mg/dL (0.6-1.3); POTASSIUM 4.5 mmol/L (3.5-5.1)
[2019-09-10 10:54] LABS: APTT 31.5 Seconds (25.0-31.3); INR 1.3; PROTIME 12.9 Seconds (9.20-11.50)
[2019-09-10 10:55] LABS: ALBUMIN 1.7 g/dL (3.4-5.0); TOTAL BILIRUBIN 1.8 mg/dL (<0.1-1.0)
[2019-09-10 14:10] LABS: URINE BLOOD NEGATIVE (Negative); URINE CLARITY CLEAR; URINE COLOR YELLOW; URINE GLUCOSE-RANDOM NEGATIVE (Negative); URINE KETONES NEGATIVE (Negative); URINE LEUKOCYTES-REFLEX TRACE (Negative); URINE NITRITE-REFLEX NEGATIVE (Negative); URINE PROTEIN TRACE (Negative); URINE SPECIFIC GRAVITY >= 1.030 (1.005-1.030)
[2019-09-10 14:14] LABS: ICTOTEST (BILI CONFIRMATORY) Negative (Negative); URINE BILIRUBIN 1+ (Negative)
[2019-09-10 14:15] LABS: BACTERIA-REFLEX None Seen /HPF (None Seen); CALCIUM OXALATE 0-3 Few /LPF (None Seen); CASTS None Seen /LPF (None Seen); MUCUS 0-3 Light strn/LPF (None Seen); SQUAMOUS 4-10 Moderate /LPF (0-3); URINE RBC None Seen /HPF (0-2); URINE WBC-REFLEX 0-5 Rare /HPF (0-5)
[2019-09-10 14:57] VITALS: BP 90/71
--- NOTE | 2019-09-10 18:14 | EKG ---
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: : 1960 Requested By: Adeola Jones Order Number: [id number] MD: Ariel Moreira Measurements Intervals [place] Rate: 96 P: 49 ID: 152 QRS: 64 QRSD: 102 T: 25 QT: 356 QTc: 450 Interpretive Statements Sinus rhythm Low voltage, throughout Compared to ECG 08/02/2019 01:53:52 Sinus tachycardia no longer present T-wave abnormality no longer present Electronically Signed On 09-10-2019 18:14:37 CDT by Ariel Moreira [email or web address] <ELECTRONICALLY SIGNED> By: Ariel Moreira MD, [facility] 09/10/19 1814 35 Ariel Moreira MD, FACC /EPI
== END 2019-09-10 14:59 | disposition home or self-care (01) ==
LOC: M.ERS 09:36
PROVIDERS: Nurse Practitioner Family
DX: E87.1 Hypo-osmolality and hyponatremia (principal); K72.90 Hepatic failure, unspecified without coma; K21.9 Gastro-esophageal reflux disease without esophagitis; N18.3 Chronic kidney disease, stage 3 (moderate); Z88.0 Allergy status to penicillin; Z88.8 Allergy status to other drugs, medicaments and biological substances; Z87.891 Personal history of nicotine dependence